=== PATIENT | female | born 1995 | race Caucasian/White ===

== ENCOUNTER → 2018-10-29 21:26 | Observation (INO) ==
[2018-10-29 20:52] LABS: Bilirubin,Urine Negative (Negative); Blood,Urine Negative (Negative); Clarity,Urine Cloudy (Clear); Color,Urine Yellow (Yellow); Glucose,Urine (UA) Normal (Normal); Ketones,Urine Negative (Negative); Leukocyte Esterase,Urine Small (Negative); Nitrite,Urine Negative (Negative); Protein,Urine Negative (Neg-Trace); Specific Gravity,Urine 1.014 (1.010-1.025); Urobilinogen,Urine Normal (Normal)
[2018-10-29 20:55] LABS: Bacteria,Urine Moderate per hpf (None-Few); Hyaline Casts,Urine None Seen per lpf (None-Few); Squamous Epithelial Cell,Urine Many per lpf (None-Few)
[2018-10-29 21:00] LABS: Amphetamine Screen,Urine Negative ng/mL (Cutoff=1000); Barbiturate Screen,Urine Negative ng/mL (Cutoff=200); Benzodiazepines Screen,Urine Negative ng/mL (Cutoff=200); Cannabinoid Screen,Urine Negative ng/mL (Cutoff = 50); Cocaine Screen,Urine Negative ng/mL (Cutoff= 300); Opiate Screen,Urine Negative ng/mL (Cutoff=300); Phencyclidine Screen,Urine Negative ng/mL (Cutoff=25)
--- NOTE | 2018-10-29 21:16 | OB/GYN Progress Note ---
Date of Encounter: 10/29/18 Time of Encounter: 21:12 - Assessment and Plan (1) 25 weeks gestation of Status: Acute monitoring appropriate for gestation and nonindicative of pre term labor Discussed common discomforts of and relief measures Pre term labor precautions discussed Negative urine results Follow up with routine care & PRN POC per consult with Dr. Padilla Subjective - Subjective Interval history: Ms. Holly presents to labor triage with c/o 8-10 ctx in a one hour. Reports + movement. Denies vaginal bleeding, discharge, leaking of fluid, epigastric pain,headaches and vision changes. She is seen by Dr Min for her care and has had an uncomplicated . Antepartum ROS: movement normal, no loss of fluid, no vaginal bleeding Objective - Vital Signs Vital Signs: Intake and Output 10/29/18 10/29/18 10/29/18 07:59 15:59 23:59 Other: Weight 68.674 kg Patient Weight 10/29/18 23:59 Weight 68.674 kg - Exam FHR: category 1 FHR comments: Cat 1 tracing EFM: FHR 135 [place]: Ctx Absent Auscultation: bilateral: normal Abdomen: Present: normal appearance, soft, gravid. Absent: tenderness Uterus: Present: normal. Absent: firm, tenderness Comments: Declined cervical exam - Labs Labs: Abnormal lab results Urine Clarity Cloudy (Clear) A 10/29/18 20:40 Ur Leukocyte Esterase Small (Negative) H 10/29/18 20:40 Urine Microscopic WBC 5-15 per hpf (0-3) H 10/29/18 20:40 Ur Squamous Epith Cells Many per lpf (None-Few) H 10/29/18 20:40 Urine Bacteria Moderate per hpf (None-Few) H 10/29/18 20:40 Ur Culture Indicated? NO. (NO) A 10/29/18 20:40
[~2018-10-29 21:26] MED LIST: Prenatal Vit/FA 1 EACH TABLET PO SCH
== END | disposition home or self-care (01) ==
LOC: 1NENULAB
PROVIDERS: ADMIT Advanced Practice Midwife; ATTEND Advanced Practice Midwife

== ENCOUNTER → 2019-01-30 11:51 | Observation (INO) ==
[2019-01-30 10:35] LABS: Amphetamine Screen,Urine Negative ng/mL (Cutoff=1000); Barbiturate Screen,Urine Negative ng/mL (Cutoff=200); Benzodiazepines Screen,Urine Negative ng/mL (Cutoff=200); Cannabinoid Screen,Urine Negative ng/mL (Cutoff = 50); Cocaine Screen,Urine Negative ng/mL (Cutoff= 300); Opiate Screen,Urine Negative ng/mL (Cutoff=300); Phencyclidine Screen,Urine Negative ng/mL (Cutoff=25)
--- NOTE | 2019-01-30 11:51 | Discharge Summary ---
Date of Encounter: 01/30/19 Time of Encounter: 11:51 - Discharge Diagnosis (1) 39 weeks gestation of Priority: Primary Status: Acute Comments: Follow-up with Dr. Min as scheduled Labor parameters discussed Discharge home (2) Uterine contractions Priority: Secondary Status: Acute Comments: Patient monitored for 2 hours with no cervical change Education on membrane stripping given Advised to hydrate and use heat - Discharge Medications Prescriptions: No Action Vits96/Iron Fum/Folic [ Tablet] 1 each PO DAILY Loratadine [Children's Allergy Relief] 5 mg PO PRN PRN PRN Reason: Allergy Symptoms Ferrous Sulfate 324 mg PO DAILY Home Medications: Vits96/Iron Fum/Folic [ Tablet] 1 each PO DAILY 10/29/18 [History] Loratadine [Children's Allergy Relief] 5 mg PO PRN PRN 11/21/18 [History] Ferrous Sulfate 324 mg PO DAILY 01/29/19 [History] Allergies/Adverse Reactions: Allergy/AdvReac Type Severity Reaction Status Date / Time cefixime [From Suprax] Allergy Hives Verified 10/29/18 20:29 Data Procedures and tests throughout hospitalization: Laboratory Tests 01/30/19 09:50 Urine Opiates Screen Negative Ur Barbiturates Screen Negative Ur Phencyclidine Scrn Negative Ur Amphetamines Screen Negative U Benzodiazepines Scrn Negative Urine Cocaine Screen Negative U Marijuana (THC) Screen Negative Ur Drug Screen Interp See Below Labs on day of discharge: Labs from last 24 hours 01/30/19 09:50 Urine Opiates Screen Negative Ur Barbiturates Screen Negative Ur Phencyclidine Scrn Negative Ur Amphetamines Screen Negative U Benzodiazepines Scrn Negative Urine Cocaine Screen Negative U Marijuana (THC) Screen Negative Ur Drug Screen Interp See Below Date of admission: 01/30/19 09:17 Primary care physician: Giles Salmeron Jr, MD Discharging clinician: Shavonne Hoffmann Anticipated date of discharge: 01/30/19 - Patient Status Disposition: Home, Self-Care Condition: Good Functional capacity at discharge: independent ambulation Overall status at discharge: patient is progressing back to baseline - Discharge Instructions Follow Up With: Giles Salmeron Jr, MD [Primary Care Provider] - Lyndon Min DO [Partnered Physician] - Additional Instructions: LABOR AND DELIVERY DISCHARGE INSTRUCTIONS Signs and Symptoms to be Reported to your Doctor Immediately: * Sudden gush, continuous or intermittent lead of fluid from vagina (note the time of gush and color of fluid) * Onset of bright red vaginal bleeding with or without pain (if you had a vaginal exam during this visit you may notice some dark red spotting. This is normal.) * Contractions that are 5 minutes apart (from the beginning of one contraction to the beginning of the next) and last 45-60 seconds; contractions that you can no longer walk, talk or laugh through. * A change in the baby's activity. This could be an increase or decrease in activity. * Severe headache which does not go away with tylenol. * Sudden swelling in the face, hands, arms and/or legs. * Upper abdominal pain - sometimes associated with heartburn or nausea and is not relieved by Maalox, Mylanta or Tums. * Kick Counts __ One hour after a meal, lay down on one side in a quiet place. Count the number of time the baby moves during an hour. 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 She was monitored and made no change. Education provided and patient discharged home in stable condition. Time Attestation: Total time spent providing and/or coordinating discharge services: Time Spent: Less than 30 minutes Exam - Constitutional General appearance IM: A&O X 3, pleasant, no acute distress, answers questions appropriately - Respiratory Respiratory exam: Present: CTAB - Cardiovascular Cardiovascular exam IM: Present: RRR, +S1, +S2 - GI/Abdominal GI/Abdominal exam IM: normal bowel sounds, no peritoneal signs - Rectal Rectal exam: deferred - Uterine Tone: Firm - Extremities Exam Extremities exam IM: Present: normal capillary refill, normal inspection, radial pulses palpable and symmetrical - Neurological Exam Neurological exam: alert, CN II-XII intact, normal gait, oriented X3, reflexes normal, no focal deficits, strengths equal and symetr throughout - VTE Reasons for not Prescribing Prophylaxis: Treatment not Indicated - Low risk for VTE
== END | disposition home or self-care (01) ==
LOC: 1NENULAB
PROVIDERS: ADMIT Advanced Practice Midwife; ATTEND Advanced Practice Midwife

== ENCOUNTER 2019-02-01 09:46 | Inpatient (IN) ==
[~2019-02-01 09:46] MED LIST changes: +*HR* Nalbuphine 10 MG/ML AMPUL IVP PRN; +Famotidine 20 MG/2 ML VIAL IVP PRN; +Lidocaine 1% 20 ML MDV INFILT PRN; +Metoclopramide 10 MG/2 ML VIAL IVP PRN; +Naloxone 0.4 MG/ML INJ IVP PRN; +Ondansetron 4 MG/2 ML VIAL IVP PRN; +Oxytocin 20 units/ LR 1000 mL 20 UNIT/1,000 ML BAG IVC SCH; -Prenatal Vit/FA 1 EACH TABLET PO SCH; +Ringers Solution, Lactated 1,000 ML IVC SCH; +miSOPROStol 25 MCG TABLET PO PRN
--- NOTE | 2019-02-01 10:22 | OB/GYN History & Physical ---
Date of Encounter: 02/01/19 Time of Encounter: 10:18 Assessment and Plan (1) SROM (spontaneous rupture of membranes) Current visit: Yes Status: Acute admitted for delivery Will augment with Cytotec Dr. 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 Page is a 23 year old female @ 39w2d presents to labor and delivery with complaints of SROM at 0830 this morning. Patient reports large amount of clear fluid. Patient reports good movement. Patient denies regular contractions or VB. Patient receives care with Dr. Min. Blood type: A + Rubella: Negative Hep B: Nonreactive GBS: Negative Past Med Surg Social Fam HX - Past Medical History Source: patient Medical history: asthma Additional medical history: low iron Psychiatric history: anxiety, depression - Past Surgical History Surgical History: other Additional surgical history: T&A, [place] teeth - Social History Smoking Status: Never smoker Smokeless Tobacco Status: No Alcohol use: none Drug use: none - Family History Mother Living Status: Still Living Hx Family Cardiac Disorders: No Hx Family Respiratory Disorders: No Hx Family Cancer: No Hx Family GI Disorders: No Hx Family Genitourinary Disorders: No Hx Family Endocrine Disorder: No Hx Family Musculoskeletal Disorders: No Hx Family Neuromuscular Disorders: No Hx Family Neurologic Disorders: No Hx Family HEENT Disorders: No Hx Family Autoimmune Disorders: No Hx Family Reproductive Disorders: No Hx Family Psychosocial Disorders: No Hx Family Medical Disorders: No Obstetrical History - Pregnancies : 1 Para: 0 Term: 0 : 0 Ab's: 0 Livin Medications and Allergies Vits96/Iron Fum/Folic [ Tablet] 1 each PO DAILY 10/29/18 [History] Loratadine [Children's Allergy Relief] 5 mg PO PRN PRN 11/21/18 [History] Ferrous Sulfate 324 mg PO DAILY 01/29/19 [History] Allergy/AdvReac Type Severity Reaction Status Date / Time cefixime [From Suprax] Allergy Hives Verified 10/29/18 20:29 Review of System OB - Constitutional Constitutional ROS IM: no chills, no headache(s), no weakness - Cardiovascular Cardiovascular: no edema, no palpitations, no syncope - Respiratory Respiratory: no cough, no dyspnea - Gastrointestinal Gastrointestinal: no abdominal pain, no cramping, no diarrhea, no heartburn, no nausea, no vomiting - Genitourinary Genitourinary: no abnormal vaginal bleeding, no dyspareunia, no dysuria, no flank pain, no urinary frequency, no urinary urgency, no vaginal odor, no vaginal pruritis Exam - Constitutional Constitutional: well developed, well nourished, no acute distress, average body habitus - HEENT HEENT: Normocephaly, Mucus Membranes Moist - Neck Neck exam: full ROM, supple - Lungs Respiratory exam: CTAB - Cardiovascular Cardiovascular exam: RRR, +S1, +S2 - Abdomen Abdomen: Present: bowel sounds normal, gravid, non tender - Extremities Extremities exam: full ROM, normal capillary refill, normal inspection Deep Tendon Reflex Grade: 2+ Normal - Cervix Dilation: 3 (per RN) Effacement: 80 Station: -2 - Uterus Uterus exam: Present: normal size, normal contour - Anus/Rectum Anus/Rectum: Present: normal perianal skin - Comments Comments: FHR 135 bpm moderate variability +15x15 accels no decels noted. Contractions irregular Cat. 1 tracing Results All other labs normal. - VTE Reasons for not Prescribing Prophylaxis: Treatment not Indicated - Low risk for VTE
[2019-02-01 10:47] LABS: Basophils # 0.1 K/mcL (0.0-0.2); Basophils % 0.4 %; Eosinophils # 0.1 K/mcL (0.0-0.6); Eosinophils % 0.9 %; Hematocrit 36.1 % (35.3-44.9); Hemoglobin 11.9 g/dL (11.5-15.4); Immature Granulocytes % 1.1 % (0-4); Lymphocytes # 2.4 K/mcL (0.6-4.6); Lymphocytes % 19.4 %; Mean Corpuscular Hemoglobin 28.8 pg (28.0-33.3); Mean Corpuscular Volume 87.4 fL (83.0-100.0); Mean Platelet Volume 11.4 fL (9.4-12.4); Monocytes # 0.9 K/mcL (0.0-1.3); Monocytes % 6.9 %; Neutrophils # 8.8 K/mcL (1.6-8.9); Platelet Count 212 K/mcL (140-400); Red Blood Count 4.13 M/mcL (3.82-4.97); Segmented Neutrophils % 71.3 %; White Blood Count 12.4 K/mcL (4.3-11.1)
--- NOTE | 2019-02-01 10:53 | Anesthesia Evaluation PreOp ---
Date of Encounter: 02/01/19 Time of Encounter: 10:51 - Past History Planned Operation: ALBER Cardiac History: Denies any Significant Hx Pulmonary History: Asthma (remote) COMPUTER COMPOSITOR History: Denies Any Significant HX Other Medical History: GERD Anesthesia History: No Prior Anesthetic Complications, Past Anesthesia (tonsil) : Yes Test: Positive Alcohol Use: none Drug use: none Medications and Allergies Vits96/Iron Fum/Folic [ Tablet] 1 each PO DAILY 10/29/18 [History] Loratadine [Children's Allergy Relief] 5 mg PO PRN PRN 11/21/18 [History] Ferrous Sulfate 324 mg PO DAILY 01/29/19 [History] Allergy/AdvReac Type Severity Reaction Status Date / Time cefixime [From Suprax] Allergy Hives Verified 10/29/18 20:29 - Meds/Allergy Pre-op Review Medications Reviewed: Yes Allergies Reviewed: Yes Beta Blockers on Current Med List: No Anesthesia Exam 122/85 92 16 fht 129 Height: 5'5" Weight: 80k NPO (# of Hours): 3 Pain Scale: 2 Pain Scale Used: Numeric (1 - 10) - HEENT Pupil (Motor): Pupils equal Mallampati: II Teeth: Normal Oral Opening: Greater than 3 - COMPUTER COMPOSITOR LOC: Oriented COMPUTER COMPOSITOR Motor: Normal RUE, Normal LUE, Normal RLE, Normal LLE, Normal Face COMPUTER COMPOSITOR Sensory: Normal: RUE, LUE, RLE, LLE, Face - Cardiac Rhythm: Regular Murmur: None - Pulmonary Breath Sounds: bilateral Clear Respiratory Effort: Symmetrical Anesthesia Assess/Plan ASA Score: 2 Level of consciousness: Cooperative Anesthetic Plan: Epidural (risks discussed, questions answered, consented) Monitoring Plan: Standard Monitors Recovery Plan: Other
[2019-02-01] MEDS ORDERED: *HR* Ropivacaine/PF 0.2% 20 ML VIAL EP ONE (10:54)
[2019-02-01] MEDS ORDERED: *HR* FentaNYL (PF) 100 MCG/2 ML VIAL EP ONE (10:54)
[2019-02-01] MEDS ORDERED: Epidural Premix (fent/bupiv) 110 ML EP SCH (11:00)
[2019-02-01 11:14] LABS: Amphetamine Screen,Urine Negative ng/mL (Cutoff=1000); Barbiturate Screen,Urine Negative ng/mL (Cutoff=200); Benzodiazepines Screen,Urine Negative ng/mL (Cutoff=200); Cannabinoid Screen,Urine Negative ng/mL (Cutoff = 50); Cocaine Screen,Urine Negative ng/mL (Cutoff= 300); Opiate Screen,Urine Negative ng/mL (Cutoff=300); Phencyclidine Screen,Urine Negative ng/mL (Cutoff=25)
[2019-02-01] MEDS ORDERED: *HR* Ropivacaine/PF 0.2% 20 ML VIAL ONE (13:49)
[2019-02-01] MEDS ORDERED: *HR* FentaNYL (PF) 100 MCG/2 ML VIAL ONE (13:49)
--- NOTE | 2019-02-01 14:21 | Anesthesia Procedures ---
Date of Encounter: 02/01/19 Time of Encounter: 14:19 Procedures: Anesthesia - Epidural/Spinal Patient ID/Chart reviewed: Yes Patient examined: Yes OB Eval: Gestational age: 39 OB Eval: : 1 OB Eval: Hx Para: 0 OB Eval: Dilated at (cm): 3 OB Eval: Contractions: Non-stressed pattern Consent Obtained: Yes Supplemental Oxygen: None/Room Air Site Prep: Aseptic Technique, Sterile prep and drape, 0.5% Chlorhexidine/Alcohol Patient position: upright Local Anesthetic: Lidocaine 1% Amount of Local Anesthetic used: 3 Touhy Needle Gauge: 18 Touhy Needle Depth (cm): 6 Catheter Depth at Skin (cm): 15 Test Dose (1.5% Lido + Epi): Volume given (mls): 3 Test Dose Result: Negative Loading Dose: Fentanyl (mcg): 100 Loading Dose: Other: Ropivacaine 0.2% 5cc Loading Dose Administered: Thru Touhy Needle Infusion Med: 0.125% Bupivacaine w/ 2 mcg/ml Fentanyl Infusion Rate (mls/hr): 15 (pcea 5cc q30") Catheter Secured in Place: Tegaderm Interspace Used: L2-L3 Loss of Resistance (PATRICIA): Yes Blood: No CSF: No Paresthesia: No Procedure: aseptic, sandy well, VSS effective Vitals + FHT's: 111/78 88 16 fht 129
[2019-02-01] MEDS ORDERED: EPHEDrine 50 MG/ML VIAL ONE (14:25)
--- NOTE | 2019-02-01 16:45 | OB Labor Progress Note ---
Date of Encounter: 02/01/19 Time of Encounter: 16:43 Labor Progress Note - Subjective Subjective: Patient reports feeling vaginal pressure. - Cervix Cervix: 10/100/0 - Heart Tones Heart Tones: 135 bpm moderate variability +15x15 accels no decels noted. Cat. 1 tracing - [place]: 2-3 min apart - Interventions Interventions: SVE, pericare - Plan Plan: Prepare patient for delivery anticipate .
--- NOTE | 2019-02-01 18:23 | OB/GYN Procedure Note ---
Delivery - Delivery Date: 02/01/19 Provider: Roseanne Spivey Intrapartum events: none Delivery induction: none Delivery monitor: external FHT Anesthesia: epidural Quantitated Blood Loss: 300 - Infant (s) A Infant Delivery Date: 02/01/19 Delivery Time: 17:48 Presentation: vertex Position: [place]ANCES[place] Route of delivery: Gender: Female Viability: Viable Pounds: 6 Ounces: 10 Weight Gram: 3010 kg at 1 minute: 8 at 5 mins: 9 Shoulder Dystocia: not encountered Specimens collected: cord blood Placenta: spontaneous, uterine exploration Cord: nuchal cord (x1 ), 3 umbilical vessels, nuchal reduced - Repair Episiotomy: none Laceration Description: Periurethral (right), Vaginal (left side) - Complications Delivery complications: none - Disposition Mom disposition: stable in LDR disposition: stable in LDR - Comments Comments: Called to LDR for delivery. Patient feeling pressure with contractions. Patient was placed in stirrups and prepped for vaginal delivery. Under maternal effort patient spontaneously delivered a viable female . A nuchal x1 was noted and easily reduced. No shoulder dystocia or meconium was encountered. was placed on maternal abdomen. A right periurethral laceration was noted and repaired with 4-0 vicryl. After cord pulsations ceased cord was clamped and cut. A cord segment and cord blood was collected. Placenta delivered spontaneously and intact. A right vaginal wall laceration was noted and repaired with 3-0 vicryl. EBL 300, both mother and stable in LDR for [address] Mai aware of Delivery.
[2019-02-01] MEDS ORDERED: Benzocaine/Menthol 56 GM AEROSOL SPRAY TP PRN (20:39)
[2019-02-01] MEDS ORDERED: Measles/Mumps/Rubella Vacc 0.5 ML VIAL SQ PRN (20:39)
[2019-02-01] MEDS ORDERED: *HR* HYDROcodone/Acet 5/325 mg TABLET PO PRN (20:39)
[2019-02-01] MEDS ORDERED: Acetaminophen 325 MG TABLET PO PRN (20:39)
[2019-02-01] MEDS ORDERED: Oxytocin 20 units/ LR 1000 mL 20 UNIT/1,000 ML BAG IVC SCH (20:39)
[2019-02-01] MEDS ORDERED: Lanolin 7 G OINT...G. TP PRN (20:39)
[2019-02-01] MEDS: Ibuprofen 600 MG TABLET PO PRN (21:23)
--- NOTE | 2019-02-02 08:39 | OB/GYN Progress Note ---
Date of Encounter: 02/02/19 Time of Encounter: 08:36 - Assessment and Plan (1) Vaginal delivery Current Visit: Yes Status: Acute Patient meeting day one milestones. Pain well-controlled with prescribed medications. Voiding without difficulty, tolerating regular diet, bleeding light. No bowel movement yet. Anticipate discharge either this evening or tomorrow. (2) Breast feeding status of mother Current Visit: Yes Status: Acute support as needed. We will send home with prescription for breast pump. She is unsure if she would like to go home she states the infant is latching but not suckling very well. Prefers to wait throughout the day to see how breast- feeding goes before she makes a decision of whether to be discharged today or tomorrow. (3) Laceration of periurethral tissue with delivery Current Visit: Yes Status: Acute Motrin, ice packs, Dermoplast as needed for discomfort (4) Obstetric vaginal laceration, delivered, current hospitalization Current Visit: Yes Status: Acute Motrin, ice packs, Dermoplast as needed for discomfort (5) Rubella nonimmune status, delivered, current hospitalization Current Visit: Yes Status: Acute Offer MMR vaccine prior to discharge Subjective - Subjective Principal diagnosis: Status post vaginal delivery Patient reports: appetite normal, voiding normally, pain well controlled, ambulating normally [place]: doing well, nursing well (Having some difficulty with BF) Objective - Latest Vital Signs Latest vital signs: Vital Signs Temp Pulse Resp BP Pulse Ox 02/02/19 04:00 98.1 F 88 14 126/83 99 02/01/19 22:45 98.1 F 95 14 136/72 98 02/01/19 21:40 98.3 F 93 14 111/74 100 02/01/19 20:40 98.3 F 98 14 120/78 99 Intake and Output 02/01/19 02/02/19 02/02/19 23:59 07:59 15:59 Output Total 850 / 850 Balance -850 / -850 Output: Urine 850 / 850 Other: Weight 76.3 kg - Exam Lungs: bilateral: normal Chest: Normal S1, Normal S2 Extremities: Present: normal Abdomen: Present: normal appearance, soft Uterus: Present: normal, firm Uterus Position: At Umbilicus, Midline - Labs Labs: Laboratory Results - last 24 hr 02/01/19 02/01/19 09:45 09:45 WBC 12.4 H RBC 4.13 Hgb 11.9 Hct 36.1 MCV 87.4 MCH 28.8 MCHC 33.0 RDW 14.0 Plt Count 212 MPV 11.4 Immature Gran % 1.1 Seg Neutrophils % 71.3 Lymphocytes % 19.4 Monocytes % 6.9 Eosinophils % 0.9 Basophils % 0.4 Neutrophils # 8.8 Lymphocytes # 2.4 Monocytes # 0.9 Eosinophils # 0.1 Basophils # 0.1 Urine Opiates Screen Negative Ur Barbiturates Screen Negative Ur Phencyclidine Scrn Negative Ur Amphetamines Screen Negative U Benzodiazepines Scrn Negative Urine Cocaine Screen Negative U Marijuana (THC) Screen Negative Ur Drug Screen Interp See Below
[2019-02-02] MEDS ORDERED: Prenatal Vit/FA 1 EACH TABLET PO SCH (09:00)
[2019-02-02] MEDS: Ibuprofen 600 MG TABLET PO PRN (11:59)
[2019-02-02 16:35] VITALS: BP 109/63
== END 2019-02-02 19:15 | disposition home or self-care (01) | DRG 806 ==
LOC: 1NENULAB → 1NENUOBS 20:30
PROVIDERS: ADMIT Advanced Practice Midwife; ATTEND Advanced Practice Midwife

== ENCOUNTER → 2020-12-19 16:03 | Observation (INO) ==
[2020-12-19 15:36] LABS: Bacteria,Urine Few per hpf (None-Few); Bilirubin,Urine Negative (Negative); Blood,Urine Moderate (Negative); Budding Yeast,Urine Few per hpf (None Seen); Clarity,Urine Turbid (Clear); Color,Urine Yellow (Yellow); Glucose,Urine (UA) Normal (Normal); Ketones,Urine 40 mg/dL (Negative); Leukocyte Esterase,Urine Large (Negative); Mucus,Urine Few per lpf (None-Few); Nitrite,Urine Negative (Negative); PH,Urine 7.5 pH Units (5.0-8.0); Protein,Urine 50 mg/dL (Neg-Trace); RBC,Urine 50-100 per hpf (0-3); Renal Epithelial Cells,Urine Few per hpf (None-Few); Specific Gravity,Urine 1.026 (1.010-1.025); Squamous Epithelial Cell,Urine Moderate per hpf (None-Few); Transitional Epi Cells,Urine Few per hpf (None-Few); Urobilinogen,Urine Normal (Normal); WBC,Urine TNTC per hpf (0-3)
== END | disposition home or self-care (01) ==
LOC: 1NENULAB
PROVIDERS: ADMIT Advanced Practice Midwife; ATTEND Advanced Practice Midwife

== ENCOUNTER 2021-04-07 22:21 | Inpatient (IN) ==
[~2021-04-07 22:21] MED LIST changes: +*HR* Nalbuphine 10 MG/ML AMPUL IV PRN; -*HR* Nalbuphine 10 MG/ML AMPUL IVP PRN; -Oxytocin 20 units/ LR 1000 mL 20 UNIT/1,000 ML BAG IVC SCH; -Ringers Solution, Lactated 1,000 ML IVC SCH; -miSOPROStol 25 MCG TABLET PO PRN
[2021-04-07 22:53] LABS: Basophils % 0.3 %; Eosinophils # 0.2 K/mcL (0.0-0.6); Eosinophils % 1.3 %; Hematocrit 34.8 % (35.3-44.9); Hemoglobin 11.4 g/dL (11.5-15.4); Immature Granulocytes % 0.5 % (0-4); Lymphocytes # 2.9 K/mcL (0.6-4.6); Lymphocytes % 25.3 %; Mean Corpuscular HGB Conc 32.8 g/dL (31.6-35.5); Mean Corpuscular Hemoglobin 28.6 pg (28.0-33.3); Mean Corpuscular Volume 87.2 fL (83.0-100.0); Mean Platelet Volume 11.9 fL (9.4-12.4); Monocytes # 0.8 K/mcL (0.0-1.3); Monocytes % 7.2 %; Neutrophils # 7.6 K/mcL (1.6-8.9); Platelet Count 159 K/mcL (140-400); Red Blood Count 3.99 M/mcL (3.82-4.97); Red Cell Distribution Width 13.6 % (11.5-14.5); Segmented Neutrophils % 65.4 %; White Blood Count 11.6 K/mcL (4.3-11.1)
[2021-04-07] MEDS ORDERED: EPHEDrine 50 MG/ML VIAL IVP PRN (23:02)
[2021-04-07 23:09] LABS: Amphetamine Screen,Urine Negative ng/mL (Cutoff=1000); Barbiturate Screen,Urine Negative ng/mL (Cutoff=200); Benzodiazepines Screen,Urine Negative ng/mL (Cutoff=200); Cannabinoid Screen,Urine Negative ng/mL (Cutoff = 50); Cocaine Screen,Urine Negative ng/mL (Cutoff= 300); Opiate Screen,Urine Negative ng/mL (Cutoff=300); Phencyclidine Screen,Urine Negative ng/mL (Cutoff=25)
[2021-04-07] MEDS ORDERED: Epidural Premix (fent/bupiv) 110 ML EP SCH (23:15)
[2021-04-07 23:21] LABS: Influenza A PCR Negative (Negative); Influenza B PCR Negative (Negative); Resp. Syncytial Virus PCR Negative (Negative)
[2021-04-07 23:22] LABS: SARS-CoV-2 by PCR (In House) Negative (Negative)
[2021-04-08] MEDS: Ringers Solution, Lactated 1,000 ML IVC SCH ×2 (01:16→06:23)
[2021-04-08] MEDS ORDERED: Famotidine 20 MG/2 ML VIAL IVP ONE (04:15)
[2021-04-08] MEDS: Oxytocin 20 units/ LR 1000 mL 20 UNIT/1,000 ML BAG IVC SCH ×2 (09:33→17:42)
[2021-04-08] MEDS ORDERED: Ibuprofen 600 MG TABLET PO ONE (17:26)
[2021-04-08] MEDS ORDERED: Benzocaine/Menthol 56 GM AEROSOL SPRAY TP PRN (17:58)
[2021-04-08] MEDS ORDERED: Lanolin 7 G OINT...G. TP PRN (17:58)
[2021-04-08] MEDS ORDERED: Oxytocin 20 units/ LR 1000 mL 20 UNIT/1,000 ML BAG IVC SCH (17:58)
[2021-04-08] MEDS ORDERED: Acetaminophen 325 MG TABLET PO PRN (17:58)
[2021-04-08] MEDS ORDERED: *HR* HYDROcodone/Acet 5/325 mg TABLET PO PRN (17:58)
[2021-04-08 20:23] VITALS: TEMP 98
[2021-04-08 21:35] VITALS: BP 122/64; PULSE 85
[2021-04-09] MEDS ORDERED: Ibuprofen 600 MG TABLET PO SCH (00:01)
[2021-04-09] MEDS ORDERED: Prenatal Vit/FA 1 EACH TABLET PO SCH (09:00)
== END 2021-04-08 22:30 | disposition home or self-care (01) | DRG 807 ==
LOC: 1NENULAB
PROVIDERS: ADMIT Advanced Practice Midwife; ATTEND Advanced Practice Midwife